=== PATIENT | male | born 1995 | race Caucasian/White ===

== ENCOUNTER 2023-07-07 15:45 | Emergency (ER) | payer OTHER, SELFPAY ==
[2023-07-07 15:49] VITALS: BP 139/78; PULSE 102; RESP 18; TEMP 37.5; O2SAT 98; BMI 27.5
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
[2023-07-07] MEDS: KETOROLAC 30 MG/ML inj IM (16:21)
== END 2023-07-07 18:04 | disposition home or self-care (01) ==
PROVIDERS: Emergency Provider Student in an Organized Health Care Education/Training Program
DX: S39.012A Strain of muscle, fascia and tendon of lower back, initial encounter (principal); V43.52XA Car driver injured in collision with other type car in traffic accident, initial encounter
CPT/HCPCS: 72040; 72070; 72100; 96372; 99282; 99284; 99285; J1885

== ENCOUNTER 2023-07-11 11:38 | Emergency (ER) | payer OTHER, SELFPAY ==
[2023-07-11 11:41] VITALS: BP 143/91; PULSE 62; RESP 24; TEMP 36; O2SAT 95; BMI 25.0
[2023-07-11] MEDS: ONDANSETRON 2 MG/ML inj 4 MG IVP (12:15)
[2023-07-11] MEDS: LACTATED RINGERS 1000 ML 1,000 ML IV (12:17)
[2023-07-11] MEDS: HALOPERIDOL 5 MG/ML INJ IV (12:30)
--- NOTE | 2023-07-11 12:40 | ED.NAVMDI ---
HPI - Nausea/Vomiting/Diarrhea General Date Seen: 07/11/23 Chief complaint: Nausea/Vomiting Stated complaint: Vomiting Time Seen by Provider: 07/11/23 11:49 Source: patient Mode of arrival: ambulatory Limitations: no limitations History of Present Illness HPI Narrative: Patient is a 28-year-old male presenting to emergency department for nausea and vomiting. Symptoms started this morning at 08:00. States he cannot stop vomiting. He has had symptoms like this before and was told he was never given a diagnosis. He does admit to drinking alcohol last night and had about 3 or 4 drinks. Says he smokes marijuana constantly throughout the day. States previously when this occurred he was given antiemetics and fluids and symptoms resolved. Denies fevers, chills, chest pain, shortness of breath, abdominal pain, diarrhea, constipation, lightheadedness, dizziness fevers. Related Data Home Medications Medication Instructions Recorded Confirmed [id number] 250 2 tab PO Q6H PRN 10/05/22 07/11/23 mg-250 mg-65 mg tablet (Excedrin Migraine) ibuprofen 200 mg tablet 400 mg PO Q6H PRN 10/05/22 07/11/23 Previous Rx's Medication Instructions Recorded ondansetron 4 mg disintegrating 4 mg PO Q6H #20 tabs 07/11/23 tablet Allergies Allergy/AdvReac Type Severity Reaction Status Date / Time codeine Allergy Anaphylaxis Verified 07/11/23 11:47 [facility] Medical History (Updated 07/11/23 @ 13:37 by Alexander Castro, DO) Neck pain ?M54.2 - Cervicalgia (ICD-10) Back pain ?M54.9 - Dorsalgia, unspecified (ICD-10) Depression ?F32.A - Depression, unspecified (ICD-10) Surgical History (Updated 10/05/22 @ 13:31 by Rosemary Bolanos ~ [facility], [facility]) History of tonsillectomy ?Z90.89 - Acquired absence of other organs (ICD-10) Family History (Updated 10/05/22 @ 13:36 by Rosemary Bolanos ~ [facility], [facility]) Grandmother Diabetes Grandfather Lymphoma Father Heart disease Social History (Updated 10/05/22 @ 13:32 by Rosemary Bolanos ~ [facility], [facility]) Smoking Status: Current every day smoker What tobacco products do you use: cigarettes Do you use any of these nicotine containing products: None Second hand tobacco smoke exposure: No How often do you have a drink containing alcohol: monthly or less AUDIT-C Alcohol total score: 1 Non-prescribed substance use: marijuana (any form) Non-prescribed substance use details: daily Little interest or pleasure in doing things: more than half the days Feeling down, depressed, or hopeless: several days service: No Exam Narrative: Exam Narrative: Const: Well-nourished, Well-developed, in moderate distress, actively retching Eyes: PERRL, no conjunctival injection, and symmetrical lids HENT: Atraumatic external nose and ears. Moist mucous membranes. Neck: Symmetric, trachea midline, No thyromegaly. CVS: RRR, No murmurs or gallops. Peripheral pulses 2+ and equal in all extremities RESP: Unlabored respiratory effort. Clear to auscultation bilaterally. GI: Nontender/Nondistended, No rebound or guarding. MSK:Extremities w/o deformity, Normal Active ROM Skin: Warm, Dry. No rashes or lesions. Neuro: Normal Muscle tone, No focal neurological deficits. Psych: Awake, Alert, & Oriented x3. Appropriate mood and affect. Const: Vital Signs, click to edit/add: Vital Signs - 24 hr 07/11/23 11:41 Temperature 96.8 F L Pulse Rate [Pulse Oximeter] 62 Respiratory Rate 24 Blood Pressure [Ri ght Upper Arm] 143/91 H Pulse Oximetry 95 Oxygen Delivery Me thod Room Air Course Vital Signs Vital signs: Initial Vital Signs Temperature 96.8 F L 07/11/23 11:41 Temperature Source Temporal Artery Scan 07/11/23 11:41 Pulse Rate 62 07/11/23 11:41 Respiratory Rate 24 07/11/23 11:41 Blood Pressure 143/91 H 07/11/23 11:41 Blood Pressure Mean 108 H 07/11/23 11:41 Blood Pressure Position Sitting 07/11/23 11:41 Pulse Oximetry 95 07/11/23 11:41 Oxygen Delivery Method Room Air 07/11/23 11:41 Vital Signs Temperature 96.8 F L 07/11/23 11:41 Pulse Rate 62 07/11/23 11:41 Respiratory Rate 24 07/11/23 11:41 Blood Pressure 143/91 H 07/11/23 11:41 Pulse Oximetry 95 07/11/23 11:41 Oxygen Delivery Method Room Air 07/11/23 11:41 Temperature 96.8 F L 07/11/23 11:41 Pulse Rate 62 07/11/23 11:41 Respiratory Rate 24 07/11/23 11:41 Blood Pressure 143/91 H 07/11/23 11:41 Pulse Oximetry 95 07/11/23 11:41 Oxygen Delivery Method Room Air 07/11/23 11:41 Medications Administered Medications: Discontinued Medications Generic Name Dose Route Start Last Admin Trade Name Freq PRN Reason Stop Dose Admin Haloperidol Lactate 5 mg 07/11/23 12:20 07/11/23 12:30 Haloperidol 5 Mg/Ml Inj IV 07/11/23 12:21 5 mg ONCE ONE Administration Lactated Ringer's 1,000 mls @ 1,000 mls/hr 07/11/23 12:04 07/11/23 12:17 Lactated Ringers 1000 Ml IV 07/11/23 13:03 1,000 mls/hr .Q1H ONE Administration Ondansetron HCl 4 mg 07/11/23 12:04 07/11/23 12:15 Ondansetron 2 Mg/Ml Inj IVP 07/11/23 12:05 4 mg ONCE ONE Administration MDM - Nausea/Vomiting/Diarrhea MDM Narrative Medical decision making narrative: Your patient's 28-year-old male presenting for nausea and vomiting. He is an active marijuana smoker and he is likely suffering from cannabinoid hyperemesis syndrome. IV was placed he was given L of fluid and Zofran. The Zofran did not help this is a given Haldol his symptoms improved significantly. This further makes me believe this is cannabinoid hyperemesis syndrome. I informed them of the diagnosis and to stop smoking marijuana. He states he understands. Do not believe imaging and lab work is necessary at this time Discharge Plan Discharge Clinical Impression: Cannabinoid hyperemesis syndrome Patient Disposition: Home, Self-Care Condition: Improved Instructions: Cannabis Use Disorder (ED) Additional Instructions: Your symptoms are likely secondary to your marijuana use. I recommend he stop smoking marijuana. Use the Zofran as needed for nausea. Return to emergency department for new or worsening symptoms Prescriptions: New ondansetron 4 mg tablet,disintegrating 4 mg PO Q6H Qty: 20 0RF No Action ibuprofen 200 mg tablet 400 mg PO Q6H PRN Excedrin Migraine 250-250-65 mg tablet 2 tab PO Q6H PRN Follow Up/Referrals: Provider,Not a Local [Primary Care Provider] - Stand Alone Forms: [employer] Info Instructions
--- NOTE | 2023-07-11 12:56 | ED.NURSE ---
Patient retching and nausea significantly reduced post haldol.
== END 2023-07-11 13:47 | disposition home or self-care (01) ==
PROVIDERS: Emergency Provider Student in an Organized Health Care Education/Training Program
DX: R11.2 Nausea with vomiting, unspecified (principal); F12.188 Cannabis abuse with other cannabis-induced disorder
CPT/HCPCS: 96374; 96375; 99282; 99283; J1630; J2405; J7120

== ENCOUNTER 2023-09-26 23:27 | Emergency (ER) | payer OTHER, SELFPAY ==
[2023-09-26 23:32] VITALS: BP 138/78; PULSE 87; RESP 20; TEMP 37; O2SAT 99; BMI 26.6
[2023-09-27] VITALS: O2SAT 98
--- NOTE | 2023-09-27 00:17 | ED_ITS ---
HPI - General Adult General Chief complaint: Allergic Reaction Stated complaint: allergic reaction, itching/hives Time Seen by Provider: 09/27/23 00:01 Source: patient Mode of arrival: ambulatory Limitations: no limitations History of Present Illness HPI narrative: 28 Year old male presents to the emergency department with hives that started about an hour ago. No fever, no trauma or injury. Similar episode 1 or 2 years ago Related Data Previous Rx's Medication Instructions Recorded prednisone 20 mg tablet 20 mg PO DAILY #3 tabs 09/27/23 Allergies Allergy/AdvReac Type Severity Reaction Status Date / Time codeine Allergy Anaphylaxis Verified 09/26/23 23:34 [facility] Medical History (Updated 09/27/23 @ 01:14 by Riddhi Foster MD) Neck pain ?M54.2 - Cervicalgia (ICD-10) Back pain ?M54.9 - Dorsalgia, unspecified (ICD-10) Depression ?F32.A - Depression, unspecified (ICD-10) Surgical History History of tonsillectomy ?Z90.89 - Acquired absence of other organs (ICD-10) Family History (Updated 10/05/22 @ 13:36 by Rosemary Bolanos ~ [facility], [facility]) Grandmother Diabetes Grandfather Lymphoma Father Heart disease Social History (Updated 10/05/22 @ 13:32 by Rosemary Bolanos ~ [facility], [facility]) Smoking Status: Current every day smoker What tobacco products do you use: cigarettes Do you use any of these nicotine containing products: None Second hand tobacco smoke exposure: No How often do you have a drink containing alcohol: monthly or less AUDIT-C Alcohol total score: 1 Non-prescribed substance use: marijuana (any form) Non-prescribed substance use details: daily Little interest or pleasure in doing things: more than half the days Feeling down, depressed, or hopeless: several days service: No Exam Const: Vital Signs, click to edit/add: Vital Signs - 24 hr 09/26/23 23:32 09/27/23 00:00 Temperature 98.6 F Pulse Rate [Right Pulse Oximeter] 87 Respiratory Rate 20 Blood Pressure [Ri ght Upper Arm] 138/78 Pulse Oximetry 99 98 Oxygen Delivery Me thod Room Air Documenting provider has reviewed patient's vital signs: yes Common normals: no apparent distress General appearance: cooperative and comfortable Other: No respiratory distress. HENMT: Common normals: normocephalic Head and scalp: normocephalic Mouth: oral and palatal mucosa normal Throat: posterior oropharynx normal and uvula midline Eye: Common normals: PERRL and EOMs intact bilaterally Pupil: PERRL Other: Sclera slightly injected on the right, normal on the left, no purulent drainage. No swelling to the conjunctiva. Neck & C-Spine: Common normals: full ROM and no lymphadenopathy General: normal visual inspection Resp: Common normals: normal respiratory effort, no use of accessory muscles and clear to auscultation bilaterally Effort & inspection: able to speak in complete sentences Auscultation: clear to auscultation bilaterally Cardio: Common normals: regular rate, regular rhythm, S1 normal heart sound, S2 normal heart sound and no murmurs Rate: regular rate Rhythm: regular rhythm Heart sounds: S1 normal and S2 normal GI: Common normals: Normal to inspection, nondistended, normoactive bowel sounds present, soft to palpation and no hepatosplenomegaly Palpation: soft and no hepatosplenomegaly Extremity: Common normals: normal to inspection and normal capillary refill Psych: Attitude: calm Activity/motor behavior: appropriate eye contact Insight: insight good Judgement: judgment good Skin: Narrative: Classic hives on arms, centering around antecubital fossa, a little bit on the upper chest and upper back, less than 10% total body surface area. No swelling on the face, lips, tongue. Course Course ED Course: Hives in patient with prior history of similar reaction. No signs of anaphylaxis. No signs of respiratory distress, circulatory collapse, GI symptoms. Uncertain trigger. Will give prednisone 40 mg p.o. x1, 10 of loratadine, 20 of famotidine and 50 of oral Benadryl. Will remain on continuous pulse ox monitor. Re-evaluate in an hour. Would likely benefit from a small steroid burst, oral antihistamines. Reevaluation(s) Time of Reevaluation #1: 01:18 Reevaluation #1: Patient monitored for about 90 minutes. Recheck showing that his hives are definitely improving though not completely resolved. No airway difficulty, no swelling of the lips, tongue, oropharynx. He is feeling quite a bit better. Will discharge home on 3 days of prednisone, 2 weeks of Claritin and p.r.n. Benadryl. Alarm symptoms reviewed and discussed, written instructions provided. Primary care follow-up if he continues to have episodes for thyroid, Lyme and other additional testing. He verbalizes understanding and agreement of plan Vital Signs Vital signs: Initial Vital Signs Respiratory Effort Normal, Spontaneous, Non-Labored 09/26/23 23:28 Respiratory Depth Normal 09/26/23 23:28 Vital Signs Temperature 98.6 F 09/26/23 23:32 Pulse Rate 87 09/26/23 23:32 Respiratory Rate 20 09/26/23 23:32 Blood Pressure 138/78 09/26/23 23:32 Pulse Oximetry 99 09/26/23 23:32 Oxygen Delivery Method Room Air 09/26/23 23:32 Temperature 98.6 F 09/26/23 23:32 Pulse Rate 87 09/26/23 23:32 Respiratory Rate 20 09/26/23 23:32 Blood Pressure 138/78 09/26/23 23:32 Pulse Oximetry 98 09/27/23 00:00 Oxygen Delivery Method Room Air 09/26/23 23:32 Medications Administered Medications: Generic Name Dose Route Start Last Admin Trade Name Freq PRN Reason Stop Dose Admin Diphenhydramine HCl 50 mg 09/27/23 00:15 09/27/23 00:33 Diphenhydramine 25 Mg Capsule PO 09/27/23 00:16 50 mg ONCE ONE Administration Famotidine 20 mg 09/27/23 00:15 09/27/23 00:33 Famotidine 20 Mg Tablet PO 09/27/23 00:16 20 mg ONCE ONE Administration Loratadine 10 mg 09/27/23 00:16 09/27/23 00:33 Loratadine 10 Mg Tablet PO 09/27/23 00:17 10 mg ONCE ONE Administration Prednisone 40 mg 09/27/23 00:15 09/27/23 00:33 Prednisone 10 Mg Tablet PO 09/27/23 00:16 40 mg ONCE ONE Administration Discharge Plan Discharge Clinical Impression: Urticaria Patient Disposition: Home, Self-Care Condition: Improved Instructions: Urticaria (ED) Additional Instructions: Hives can certainly be a frustrating experience. As we discussed, I am not sure what triggered them and most often, we are not able to find the cause. If you keep getting bouts of this, I would recommend a primary care follow-up to have thyroid testing, Lyme testing and other basic blood work that we are not able to do in an emergency department setting. The most important thing is to take Benadryl as soon as possible when these events happen. You should come to an emergency department if you have difficulty swallowing, difficulty breathing, swelling of the lips, tongue, throat or other severe symptoms. In the emergency department, we gave you prednisone, Claritin, famotidine and Benadryl. For the next few days follow the regimen as outlined below: Every day for the next 2 weeks, you will take a nondrowsy antihistamine like Claritin, Jolie or Zyrtec. This will work to help prevent the reaction. It is safe to take long-term if you continue getting these episodes. You will add on Benadryl 25 mg at bedtime for the next 3 nights but then also up to every 6 hours if the itch is bothersome. You will be on prednisone for the next 3 days. Your next dose will be early afternoon today which is . You will then take a dose Sunday morning and Sunday morning. This also helps reduce the hives reaction. For minor episodes in the future, use the 2 weeks of Claritin and nighttime Benadryl regimen as outlined above, seeking medical care if symptoms become severe. Remember that friction as in itch, heat and hot showers will worsen your reaction. Cold compresses may be temporarily helpful. Activity Level: No Restrictions Discharge Diet: Regular Prescriptions: New prednisone 20 mg tablet 20 mg PO DAILY Qty: 3 0RF Follow Up/Referrals: Provider,Not a Local [Primary Care Provider] - Stand Alone Forms: [employer] Info Instructions
[2023-09-27] MEDS: FAMOTIDINE 20 MG TABLET PO (00:33)
[2023-09-27] MEDS: predniSONE 10 MG TABLET 40 MG PO (00:33)
[2023-09-27] MEDS: LORATADINE 10 MG TABLET PO (00:33)
[2023-09-27] MEDS: diphenhydrAMINE 25 MG CAPSULE 50 MG PO (00:33)
[2023-09-27 01:33] VITALS: BP 128/74; PULSE 89; RESP 20; TEMP 37; O2SAT 98
== END 2023-09-27 01:34 | disposition home or self-care (01) ==
PROVIDERS: Emergency Provider Family Medicine
DX: L50.9 Urticaria, unspecified (principal)
CPT/HCPCS: 94761; 99283; 99284; A9270; J7512

== ENCOUNTER 2023-10-21 11:59 | Emergency (ER) | payer OTHER, SELFPAY ==
[2023-10-21 12:05] VITALS: BP 148/114; PULSE 86; RESP 22; TEMP 34.9; O2SAT 98; BMI 25.8
--- NOTE | 2023-10-21 12:13 | ED.GENADULT ---
HPI - General Adult General Date Seen: 10/21/23 Chief complaint: Nausea/Vomiting Stated complaint: vomiting uncontrollably Time Seen by Provider: 10/21/23 12:10 History of Present Illness HPI narrative: 28-year-old female presenting to the ER today with vomiting. He is experiencing repetitive uncontrolled emesis. He reports that he has had this many times in the past. Triage nurse notes that he smells of cannabis. Patient reports that he has been healthy and normal lately. He does smoke marijuana every day. He says he has not been smoking this morning. Since he woke up at about 830 this morning he has been nauseous and vomiting. He has had multiple episodes of nonbilious, nonbloody emesis and dry heaving. No abdominal pain. No fever. He had 1 loose/soft stool but no other diarrhea. No other known sick contacts. No recent antibiotics. Patient reports that he has had many previous episodes of this, he typically goes to whichever ER is closest for him. He recalls that he had been seen here in the [place] in the past. According to records he was in the ER 07/11/23 with vomiting. Temp was 98.6?. He was treated with Haldol, Zofran, lactated Ringer's. He was presumptively diagnosed with cannabis hyperemesis syndrome. Patient says that he has been told that his vomiting is related to marijuana intake. However he does not think it is related and does not want to stop. Related Data Previous Rx's ?Medication ?Instructions ?Recorded prednisone 20 mg tablet 20 mg PO DAILY #3 tabs 09/27/23 Allergies Allergy/AdvReac Type Severity Reaction Status Date / Time codeine Allergy Anaphylaxis Verified 09/26/23 23:34 [facility] Medical History (Updated 10/21/23 @ 15:02 by Dusty Randle MD) Neck pain ?M54.2 - Cervicalgia (ICD-10) Back pain ?M54.9 - Dorsalgia, unspecified (ICD-10) Depression ?F32.A - Depression, unspecified (ICD-10) Surgical History History of tonsillectomy ?Z90.89 - Acquired absence of other organs (ICD-10) Family History (Updated 10/05/22 @ 13:36 by Rosemary Bolanos ~ [facility]) Grandmother Diabetes Grandfather Lymphoma Father Heart disease Social History (Updated 10/05/22 @ 13:32 by Rosemary Bolanos ~ [facility], [facility]) Smoking Status: Current every day smoker What tobacco products do you use: cigarettes Do you use any of these nicotine containing products: None Second hand tobacco smoke exposure: No How often do you have a drink containing alcohol: monthly or less AUDIT-C Alcohol total score: 1 Non-prescribed substance use: marijuana (any form) Non-prescribed substance use details: daily Little interest or pleasure in doing things: more than half the days Feeling down, depressed, or hopeless: several days service: No Exam Narrative: Exam Narrative: Constitutional: Appears well-developed and well-nourished. Alert. Conversant. He is actively retching and has a small volume yellowish/greenish emesis in his emesis bag. HENT: Head: Atraumatic. Nose: Nose normal. Mouth/Throat: Oral mucosa is clear but dry. Not desiccated or cracked Eyes: Conjunctivae normal. EOM normal. Pupils equal, round, and reactive to light. No scleral icterus. Neck: Normal range of motion. Neck supple. No tracheal deviation present. Cardiovascular: Normal rate, regular rhythm. No gallop. No friction rub. No murmur heard. Symmetric radial artery pulses Pulmonary/Chest: Effort normal. No stridor. No respiratory distress. No wheezes. No rales. No rhonchi . No tenderness. Abdominal: Soft. Bowel sounds normal. No distension. No mass. No tenderness. No rebound. No guarding. No CVA tenderness. Musculoskeletal: RUE: Normal range of motion. No tenderness. No deformity LUE: Normal range of motion. No tenderness. No deformity RLE: Normal range of motion. No edema. No tenderness. No deformity LLE: Normal range of motion. No edema. No tenderness. No deformity Neurological: Alert and oriented to person, place, and time. Normal strength. CN II-VII intact. No sensory deficit. GCS eye subscore is 4. GCS verbal subscore is 5. GCS motor subscore is 6. Normal coordination Skin: Skin is warm and dry. No rash noted. No pallor. Normal capillary refill. Psychiatric: Nauseous and retching. He is overall polite and calm. Clinically sober. Const: Vital Signs, click to edit/add: Vital Signs - 24 hr 10/21/23 12:05 Temperature 94.9 F L Pulse Rate [Pulse Oximeter] 86 Respiratory Rate 22 Blood Pressure [Ri ght Upper Arm] 148/114 H Pulse Oximetry 98 Oxygen Delivery Me thod Room Air Course Course ED Course: k recheck-has received a L lactated Ringer's. After Zofran and droperidol feeling somewhat better. Able to tolerate sips of water but still nauseous. Will add Haldol Reevaluation(s) Reevaluation #1: Recheck-after Haldol feeling better. He is tolerating sips of water. He does not want to try any solids. He feels better and wants to go home. Offered to continue observe him here in the ER and try p.o. challenge with solids but he declines. He says typically in this case when he starts to feel better if he can go home and sleep then after he wakes up symptoms will have resolved. Vital Signs Vital signs: Initial Vital Signs Temperature 94.9 F L 10/21/23 12:05 Temperature Source Temporal Artery Scan 10/21/23 12:05 Pulse Rate 86 10/21/23 12:05 Pulse Rhythm Regular 10/21/23 12:05 Respiratory Rate 22 10/21/23 12:05 Blood Pressure 148/114 H 10/21/23 12:05 Blood Pressure Mean 125 H 10/21/23 12:05 Blood Pressure Position Supine 10/21/23 12:05 Pulse Oximetry 98 10/21/23 12:05 Oxygen Delivery Method Room Air 10/21/23 12:05 Vital Signs Temperature 94.9 F L 10/21/23 12:05 Pulse Rate 86 10/21/23 12:05 Respiratory Rate 22 10/21/23 12:05 Blood Pressure 148/114 H 10/21/23 12:05 Pulse Oximetry 98 10/21/23 12:05 Oxygen Delivery Method Room Air 10/21/23 12:05 Temperature 94.9 F L 10/21/23 12:05 Pulse Rate 86 10/21/23 12:05 Respiratory Rate 22 10/21/23 12:05 Blood Pressure 148/114 H 10/21/23 12:05 Pulse Oximetry 98 10/21/23 12:05 Oxygen Delivery Method Room Air 10/21/23 12:05 Medications Administered Medications: Discontinued Medications Generic Name Dose Route Start Last Admin Trade Name Lotus PRN Reason Stop Dose Admin Droperidol 2.5 mg 10/21/23 12:15 10/21/23 12:47 Droperidol 2.5 Mg/Ml Inj IV 10/21/23 12:16 2.5 mg ONCE ONE Administration Haloperidol Lactate 2.5 mg 10/21/23 13:58 10/21/23 14:05 Haloperidol 5 Mg/Ml Inj IV 10/21/23 13:59 2.5 mg ONCE ONE Administration Lactated Ringer's 1,000 ml 10/21/23 12:15 10/21/23 12:42 Lactated Ringers 1000 Ml IV 10/21/23 12:16 1,000 ml ONCE ONE Administration Ondansetron HCl 4 mg 10/21/23 12:15 10/21/23 12:46 Ondansetron 2 Mg/Ml Inj IVP 10/21/23 12:16 4 mg ONCE ONE Administration Medical Decision Making MDM Narrative Medical decision making narrative: This is a 28-year-old male presenting to the ER today with nausea and repetitive dry heaving and vomiting that began this morning. He reports a history of multiple previous episodes, including previous visits to this ER. He has in the past been diagnosed with cannabis hyperemesis syndrome. He does report ongoing cannabis use (but did not smoke any marijuana today, because he woke up sick). He does not think that cannabis hyperemesis syndrome is causing his symptoms. He is not interested in quitting. I did student support counselor him to at least do a trial a cessation for couple of months. Although he is actively vomiting, no evidence for upper GI bleeding. He had 1 soft stool but no other diarrhea. At this point viral gastroenteritis or other GI infection would be less likely. Abdominal exam is actually soft and nontender. No clinical evidence for bowel obstruction, cholecystitis, appendicitis. At this point I do not think he needs laboratory workup or advanced imaging. He was treated with IV lactated Ringer's. EKG confirms a normal QTC. He received Zofran and droperidol with only partial relief of his nausea. After Haldol 2.5 mg IV he is feeling better and requesting discharge. Will discharge home with [facility] prescription for Zofran 4 mg ODT-10 tablets. Precautions for return to the ER reviewed. Recommend outpatient follow-up with primary care. He does not currently have primary care. Recommended follow-up with the [facility] within 1 week. Return to the ER immediately with any worsening or recurring symptoms. ECG Data Attestation: I personally reviewed and interpreted this ECG as follows: Interpretation: Sinus bradycardia with sinus arrhythmia Rate: 54 MD: 144 QRS axis: Normal axis. No pathologic Q-waves. ST segment/T wave: No ST segment elevation or depression. No U-waves. QTc: 417 Discharge Plan Discharge Clinical Impression: Vomiting Patient Disposition: Home, Self-Care Condition: Stable Instructions: Acute Nausea and Vomiting (ED) Additional Instructions: As we discussed, please come back to the ER right away if you have uncontrolled vomiting, fever, bloody vomiting, or abdominal pain. Please call the [facility] [phone] on Sunday to make an appointment with a primary care provider to recheck for these periodic episodes of vomiting. However, I suspect that your vomiting could be triggered by cannabis use. I recommend that you abstain from cannabis. It often takes a month or 2 for the THC to get out of your system which may stop these events from coming back. Prescriptions: No Action prednisone 20 mg tablet 20 mg PO DAILY Qty: 3 0RF Follow Up/Referrals: Provider,Not a Local [Primary Care Provider] - Stand Alone Forms: [employer] Info Instructions
[2023-10-21] MEDS: LACTATED RINGERS 1000 ML IV (12:42)
[2023-10-21] MEDS: ONDANSETRON 2 MG/ML inj 4 MG IVP (12:46)
[2023-10-21] MEDS: droperidoL 2.5 MG/ML inj IV (12:47)
[2023-10-21] MEDS: HALOPERIDOL 5 MG/ML INJ 2.5 MG IV (14:05)
== END 2023-10-21 15:11 | disposition home or self-care (01) ==
PROVIDERS: Emergency Provider Emergency Medicine
DX: R11.10 Vomiting, unspecified (principal)
CPT/HCPCS: 93005; 96374; 96375; 99283; 99284; J1630; J1790; J2405; J7120

== ENCOUNTER 2025-01-06 19:54 | Emergency (ER) | payer OTHER, SELFPAY ==
--- OUTSIDE RECORDS SUMMARY | 2025-01-06 19:56 | XMS_ITS | Clinical Summary ---
Author Organization [facility] Address [address] [place] [address] Care Team Providers Care Manager Corporate Responsibility Name Role Phone No Ref-Primary, Physician Primary Care Provider Allergies Active Allergy Reactions Criticality Noted Date Comments Morphine And Codeine Nausea and Vomiting 2009 Medications ondansetron (ZOFRAN-ODT) 4 MG ODT tabIndications: Intractable cyclical vomiting with nausea Take 1 tablet (4 mg) by mouth every 6 hours as needed for nausea 30 tablet 3 7 Active promethazine (PHENERGAN) 25 MG tabletIndicatio ns:Intractable cyclical vomiting with nausea Take 1 tablet (25 mg) by mouth every 6 hours as needed for nausea 20 tablet 1 7 Active EPINEPHrine (ANY BX GENERIC EQUIV) 0.3 MG/0.3ML injection 2-pack Inject 0.3 mLs (0.3 mg) into the muscle once as needed for anaphylaxis 0.6 mL 2 Active prochlorperazin e (COMPAZINE) 10 MG tablet Take 1 tablet (10 mg) by mouth every 8 hours as needed for nausea or vomiting 20 tablet 4 Active Active Problems Problem Noted Date Diagnosed Date Cyclical vomiting, intractable 09/10/2016 Mild major depression 07/23/2008 Attention deficit hyperactivity disorder (ADHD) 04/03/2008 Overview (02/26/2015): Problem list name updated by automated process. Provider to review Immunizations Immunization Administration Dates Next Due DTAP (<7y) 02/11/1996, 5,1994,09/27,1994 HEPA 07/23/2008,01/17/2007,01/16/2006 HIB (PRP-T) 10/29/1995, 5,1994,09/27 HepB 05/03/1995,1994,1994 MMR (MMRII) 10/29/1995,1994 Meningococcal (Menomune ) 01/16/2006 Meningococcal ACWY (Menactra ) 01/17/2007 Poliovirus, inactivated (IPV) 05/03/1995, 995,1994 TDAP Vaccine (Adacel) 01/16/2006 TDAP Vaccine (Boostrix) 01/17/2007 Varicella Pt Report Hx of Varicella/Chicken Pox 02/25/1995 Family History Medical History Relation Comments Diabetes Maternal Grandmother Relation Status Comments Brother Alive Father Alive Maternal Grandfather Alive Maternal Grandmother Alive Mother Alive Paternal Grandfather Alive Paternal Grandmother Alive Social History Tobacco Use Types Packs/Day Years Used Date Smoking Tobacco: Never Alcohol Use Standard Drinks/Week Comments No 0 (1 standard drink = 0.6 oz pur e alcohol) Adolescent Education Answer Date Record ed Getting School Help Needed Not on file 03/13 Sex and Gender Information Value Date Recorded Sex Assigned at Not on file Legal Sex Male 4:45 AM [employer] Gender Identity Not on file Sexual Orientation Not on file Last Filed Vital Signs Vital Sign Reading Time Taken Comments Blood Pressure 144/109 10/23/2023 1:30 PM CDT Pulse 62 10/23/2023 1:30 PM CDT Temperature 36.1 C (97 F) 10/23/2023 9:18 AM CDT Respiratory Rate 20 10/23/2023 1:30 PM CDT Oxygen Saturation 99% 10/23/2023 1:41 PM CDT Inhaled Oxygen Concentration - - Weight 76.5 kg (168 lb 10.4 oz) 10/23/2023 9:18 AM CDT Height 165.1 cm (5' 5) 10/23/2023 9:18 AM CDT Body Mass Index 28.07 10/23/2023 9:18 AM CDT Plan of Treatment Health Maintenance Due Date Last Done Comments ADVANCE CARE PLANNING 1994 ANNUAL REVIEW OF HM ORDERS 1994 DEPRESSION ACTION PLAN 1994 PHQ-9 1994 YEARLY PREVENTIVE VISIT 01/18/2008 01/17/2007 HIV SCREENING 2009 HEPATITIS C SCREENING 2012 COVID-19 VACCINE ( season) 2024 INFLUENZA VACCINE (#1) 2025 DTAP/TDAP/TD VACCINE (8 - Td or Tdap) 08/05/2031 08/04/2021, 01/17/2007, 01/16/2006, Additional history exists ZOSTER VACCINE (1 of 2) 2044 HEPATITIS B VACCINE Completed 05/03/1995, 1994, 1994 MENINGITIS VACCINE Aged Out 01/17/2007, 01/16/2006 No longer eligible based on patient's age to complete this topic HPV VACCINE (No Doses Required) Completed PNEUMOCOCCAL VACCINE: PEDIATRICS (0 to 5 YEARS) AND AT-RISK PATIENTS (6 to 49 YEARS) Aged Out No longer eligible based on patient's age to complete this topic Care Teams Manager Corporate Responsibility Relationship Specialty Start Date End Date No Ref-Primary, Physician PCP - General 11/20/21
--- OUTSIDE RECORDS SUMMARY | 2025-01-06 19:56 | XMS_ITS | Clinical Summary ---
Author Organization [facility] Address [address] [place] [address] Care Team Providers Care Customer Business Manager Name Role Phone Pcp, No Primary Care Provider Unavailabl e Allergies Active Allergy Reactions Criticality Noted Date Comments Codeine Nausea And Vomiting,Vomiting Unknown 015 Medications metoclopramide HCl (REGLAN) 10 mg tabletIndication s:Cyclical vomiting Take 1 Tablet (10 mg) by mouth 4 times daily before meals and at bedtime. 30 Tablet 01/05/2021 Active Active Problems Problem Noted Date Diagnosed Date Cyclical vomiting, intractable 09/10/2016 Attention deficit disorder without mention of hy peractivity 01/06/2009 Depressive disorder, not elsewhere classified Immunizations Immunization Administration Dates Next Due Tdap 08/04/2021 Family History Medical History Relation Name Comments Migraines Mother Relation Name Status Comments Mother Alive Social History Tobacco Use Types Packs/Day Years Used Date Smoking Tobacco: Every Day Cigarettes Smokeless Tobacco: Never Tobacco Cessation:Ready to Q uit: Yes; Counseling Given: Yes Alcohol Use Standard Drinks/Week Comments Yes 2 (1 standard drink = 0.6 oz pur e alcohol) Sex and Gender Information Value Date Recorded Sex Assigned at Not on file 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 Gender Identity Not on file Sexual Orientation Not on file Obstetrics History Last Filed Vital Signs Vital Sign Reading Time Taken Comments Blood Pressure 131/65 08/04/2021 8:15 PM HAM PUMPER Pulse 84 08/04/2021 8:15 PM HAM PUMPER Temperature 37.1 C (98.7 F) 08/04/2021 6:40 PM HAM PUMPER Respiratory Rate 16 08/04/2021 8:15 PM HAM PUMPER Oxygen Saturation 97% 08/04/2021 6:40 PM HAM PUMPER Inhaled Oxygen Concentration - - Weight 80.7 kg (178 lb) 08/04/2021 6:40 PM HAM PUMPER Height 165.1 cm (5' 5) 08/04/2021 6:40 PM HAM PUMPER Body Mass Index 29.62 08/04/2021 6:40 PM HAM PUMPER Plan of Treatment Health Maintenance Due Date Last Done Comments Depression screening for age 12+ 2006 HIV for age 15-65 2009 Hepatitis C screening for ag e 18-79 2012 Hepatitis B series for 19+ ( 1 of 3 - 19+ 3-dose series) 2013 BMI (ht and wt on same day) for age 18+ 04/23/2018 04/23/2017, 09/11/2016 COVID-19 vaccine series (2023- season) 2024 Influenza Vaccine (#1) 2025 Tetanus booster 08/05/2031 08/04/2021 Pneumococcal series for age 6-49 Aged Out No longer eligible b ased on patient's age to complete this topic Insurance [facility] Care Teams Customer Business Manager Relationship Specialty Start Date End Date Pcp, No . PCP - General 04/07/19
--- OUTSIDE RECORDS SUMMARY | 2025-01-06 19:56 | XMS_ITS | Encounter Summary ---
Author Organization [facility] Address [address] [place] [address] Care Team Providers Care Line Construction Engineer Name Role Phone Bernadette Carter MD Primary Care Provider None Primary Care Provider Unavailabl e No Ref-Primary, Physician Primary Care Provider Encounter Details Date Type Department Care Team (Late st Contact Info) Description 10/01/2008 [facility] ALBINO Cisneros, Provider, [facility] Social History Tobacco Use Types Packs/Day Years Used Date Smoking Tobacco: Never Alcohol Use Standard Drinks/Week Comments No 0 (1 standard drink = 0.6 oz pur e alcohol) Sex and Gender Information Value Date Recorded Sex Assigned at Not on file 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
[2025-01-06 19:58] VITALS: BP 150/98; PULSE 73; RESP 18; TEMP 36.7; O2SAT 98; BMI 25.7
--- NOTE | 2025-01-06 20:15 | ED_ITS ---
HPI - Nausea/Vomiting/Diarrhea General Date Seen: 01/06/25 Chief complaint: Nausea/Vomiting Stated complaint: throwing up all day Time Seen by Provider: 01/06/25 19:56 Source: patient Mode of arrival: ambulatory Limitations: no limitations History of Present Illness HPI Narrative: Patient is a 29-year-old male with a history of cyclic vomiting syndrome presenting to the emergency department for nausea and vomiting. States he has been vomiting since 09:00. He is now dry heaving as not being able the eat or drink anything all day. Does have some abdominal discomfort he states that is soreness from the vomiting. Had no pain prior to the vomiting. States symptoms like this have been going on for 6 years and has been seen in this emergency department multiple times for cyclic vomiting. The patient is adamant that this is not marijuana related and he states he has tried abstaining from marijuana for multiple months in the past without improvement in his symptoms. Denies fevers, chills, chest pain, shortness of breath, weakness, numbness, lightheadedness, dizziness. No other concerns noted at this time. Related Data Allergies Allergy/AdvReac Type Severity Reaction Status Date / Time codeine Allergy Anaphylaxis Verified 01/06/25 20:01 Review of Systems Status of ROS: Reports: 10 or more systems reviewed and unremarkable except as noted in History and below [facility] Medical History (Updated 01/06/25 @ 21:37 by Alexander Castro DO) Cyclical vomiting, intractable ?R11.15 - Cyclical vomiting syndrome unrelated to migraine (ICD-10) Neck pain ?M54.2 - Cervicalgia (ICD-10) Back pain ?M54.9 - Dorsalgia, unspecified (ICD-10) Depression ?F32.A - Depression, unspecified (ICD-10) Surgical History History of tonsillectomy ?Z90.89 - Acquired absence of other organs (ICD-10) Family History Grandmother Diabetes Grandfather Lymphoma Father Heart disease Social History Smoking Status: Current every day smoker What tobacco products do you use: cigarettes Do you use any of these nicotine containing products: None Second hand tobacco smoke exposure: No How often do you have a drink containing alcohol: monthly or less AUDIT-C Alcohol total score: 1 Non-prescribed substance use: marijuana (any form) Non-prescribed substance use details: daily service: No Exam Narrative: Exam Narrative: Const: Well-nourished, Well-developed, actively dry heaving Eyes: PERRL, no conjunctival injection, and symmetrical lids HENT: Atraumatic external nose and ears. Moist mucous membranes. Neck: Symmetric, trachea midline, No thyromegaly. CVS: RRR, No murmurs or gallops. Peripheral pulses 2+ and equal in all ex tremities RESP: Unlabored respiratory effort. Clear to auscultation bilaterally. GI: Nontender/Nondistended, No rebound or guarding. MSK:Extremities w/o deformity, Normal Active ROM Skin: Warm, Dry. No rashes or lesions. Neuro: Normal Muscle tone, No focal neurological deficits. Psych: Awake, Alert, & Oriented x3. Appropriate mood and affect. Const: Vital Signs, click to edit/add: Vital Signs - 24 hr 01/06/25 19:58 01/06/25 20:23 Temperature 98.1 F Pulse Rate 61 Pulse Rate [Pulse Oximeter] 73 Respiratory Rate 18 23 Blood Pressure 157/87 H Blood Pressure [Ri ght Upper Arm] 150/98 H Pulse Oximetry 98 98 Oxygen Delivery Me thod Room Air Course Vital Signs Vital signs: Initial Vital Signs Temperature 98.1 F 01/06/25 19:58 Temperature Source Temporal Artery Scan 01/06/25 19:58 Pulse Rate 73 01/06/25 19:58 Respiratory Rate 18 01/06/25 19:58 Blood Pressure 150/98 H 01/06/25 19:58 Blood Pressure Mean 115 H 01/06/25 19:58 Blood Pressure Position Sitting 01/06/25 19:58 Pulse Oximetry 98 01/06/25 19:58 Oxygen Delivery Method Room Air 01/06/25 19:58 Vital Signs Temperature 98.1 F 01/06/25 19:58 Pulse Rate 73 01/06/25 19:58 Respiratory Rate 18 01/06/25 19:58 Blood Pressure 150/98 H 01/06/25 19:58 Pulse Oximetry 98 01/06/25 19:58 Oxygen Delivery Method Room Air 01/06/25 19:58 Temperature 98.1 F 01/06/25 19:58 Pulse Rate 61 01/06/25 20:23 Respiratory Rate 23 01/06/25 20:23 Blood Pressure 157/87 H 01/06/25 20:23 Pulse Oximetry 98 01/06/25 20:23 Oxygen Delivery Method Room Air 01/06/25 19:58 Medications Administered Medications: Generic Name Dose Route Start Last Admin Trade Name Freq PRN Reason Stop Dose Admin Ondansetron HCl 4 mg 01/06/25 21:09 01/06/25 21:12 Ondansetron 2 Mg/Ml Inj IVP 4 mg Q4H PRN Administration Nausea Discontinued Medications Generic Name Dose Route Start Last Admin Trade Name Freq PRN Reason Stop Dose Admin Haloperidol Lactate 5 mg 01/06/25 20:08 01/06/25 20:12 Haloperidol 5 Mg/Ml Inj IV 01/06/25 20:09 5 mg ONCE ONE Administration Sodium Chloride 1,000 mls @ 1,000 mls/hr 01/06/25 20:15 01/06/25 21:06 0.9 % Sodium Chloride 1000 Ml IV 01/06/25 21:14 Infused .Q1H NOEMÍ Infusion MDM - Nausea/Vomiting/Diarrhea MDM Narrative Medical decision making narrative: Patient is a 29-year-old male presenting for cyclic vomiting. This is likely cannabinoid induced but patient is in denial about that. Considering this has been ongoing for multiple years and symptoms are similar to previous episodes I do not believe it is necessary to get lab work. Nursing staff did give him a L of fluids. Also given Haldol for his nausea. After the Haldol he was feeling better but still slightly nauseated. Zofran was given. EKG was done and shows no signs of QTC prolongation. He is feeling better after the Zofran. Feels comfortable with discharge. States he has Zofran at home and does not need another prescription. ECG Data Prior ECG tracings: available for review Interpretation: Sinus bradycardia with a rate 59 beats per minute, normal intervals, normal axis, no ST or T-wave abnormalities. Appears similar previous EKG on file Discharge Plan Discharge Clinical Impression: Cyclical vomiting Patient Disposition: Home, Self-Care Condition: Stable Additional Instructions: Follow-up with your primary care provider. Return to emergency department for new or worsening symptoms Follow Up/Referrals: Provider,Not a Local [Primary Care Provider, Family Practice] Stand Alone Forms: MyHealth Info Instructions
[2025-01-06 20:23] VITALS: BP 157/87; PULSE 61; RESP 23; O2SAT 98
[2025-01-06 20:45] VITALS: PULSE 70; RESP 27; O2SAT 99
[2025-01-06] MEDS: ONDANSETRON 2 MG/ML inj 4 MG IVP (21:12)
[2025-01-06 21:15] VITALS: PULSE 62; RESP 14; O2SAT 97
== END 2025-01-06 21:53 | disposition home or self-care (01) ==
PROVIDERS: Emergency Provider Student in an Organized Health Care Education/Training Program
DX: R11.15 Cyclical vomiting syndrome unrelated to migraine (principal); R00.1 Bradycardia, unspecified
CPT/HCPCS: 93005; 94761; 96374; 96375; 99283; 99284; J1630; J2405; J7030

== ENCOUNTER 2025-02-20 09:05 | Emergency (ER) | payer OTHER, SELFPAY ==
--- OUTSIDE RECORDS SUMMARY | 2025-02-20 09:07 | XMS_ITS | Encounter Summary ---
Author Organization [facility] Address [address] [facility] [place] [address] Care Team Providers Care Gourmet Coffee Attendant Name Role Phone Bernadette Carter MD Primary Care Provider None Primary Care Provider Unavailabl e No Ref-Primary, Physician Primary Care Provider Encounter Details Date Type Department Care Team (Late st Contact Info) Description 10/01/2008 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
--- OUTSIDE RECORDS SUMMARY | 2025-02-20 09:07 | XMS_ITS | Clinical Summary ---
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 Gender Identity Not on file Sexual Orientation Not on file Obstetrics History Last Filed Vital Signs Vital Sign Reading Time Taken Comments Blood Pressure 131/65 08/04/2021 8:15 PM SUPERVISOR HOME ECONOMICS Pulse 84 08/04/2021 8:15 PM SUPERVISOR HOME ECONOMICS Temperature 37.1 C (98.7 F) 08/04/2021 6:40 PM SUPERVISOR HOME ECONOMICS Respiratory Rate 16 08/04/2021 8:15 PM SUPERVISOR HOME ECONOMICS Oxygen Saturation 97% 08/04/2021 6:40 PM SUPERVISOR HOME ECONOMICS Inhaled Oxygen Concentration - - Weight 80.7 kg (178 lb) 08/04/2021 6:40 PM SUPERVISOR HOME ECONOMICS Height 165.1 cm (5' 5) 08/04/2021 6:40 PM SUPERVISOR HOME ECONOMICS Body Mass Index 29.62 08/04/2021 6:40 PM SUPERVISOR HOME ECONOMICS Plan of Treatment Health Maintenance Due Date Last Done Comments Depression screening for age 12+ 2006 HIV for age 15-65 2009 Hepatitis C screening for ag e 18-79 2012 Hepatitis B series for 19+ ( 1 of 3 - 19+ 3-dose series) 2013 BMI (ht and wt on same day) for age 18+ 04/23/2018 04/23/2017, 09/11/2016 HPV series for age 9-45 (1 - 3-dose SCDM series) 2021 COVID-19 vaccine series ( season) 2025 Influenza Vaccine (#1) 2025 Tetanus booster 08/05/2031 08/04/2021 RSV vaccine for adults or (1 - 1-dose 75+ series) 2069 Pneumococcal series for age 6-49 Aged Out No longer eligible b ased on patient's age to complete this topic Insurance [facility] Care Teams Pencils Washer Relationship Specialty Start Date End Date Pcp, No . PCP - General 04/07/19
--- OUTSIDE RECORDS SUMMARY | 2025-02-20 09:08 | XMS_ITS | Clinical Summary ---
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
[2025-02-20 09:10] VITALS: BP 152/111; PULSE 57; RESP 22; O2SAT 100; BMI 28.9
--- NOTE | 2025-02-20 09:24 | ED.GENADULT ---
HPI - General Adult General Chief complaint: Nausea/Vomiting Stated complaint: vomiting Time Seen by Provider: 02/20/25 09:06 History of Present Illness HPI narrative: Patient is a 29-year-old gentleman with history of cyclic vomiting syndrome who comes in today with nausea and vomiting starting this morning. He has had no fevers no chills no stiff neck no headaches no changes vision no chest pain no shortness of breath no diarrhea. The vomiting has been bilious and nonbloody. He has had similar episodes in the past. No other localizing symptoms. Related Data Home Medications ?Medication ?Instructions ?Recorded ?Confirmed omeprazole magnesium PO 02/20/25 Allergies Allergy/AdvReac Type Severity Reaction Status Date / Time codeine Allergy Anaphylaxis Verified 02/20/25 09:15 Review of Systems Status of ROS: Reports: 10 or more systems reviewed and unremarkable except as noted in History and below [facility] Medical History Cyclical vomiting, intractable ?R11.15 - Cyclical vomiting syndrome unrelated to migraine (ICD-10) Neck pain ?M54.2 - Cervicalgia (ICD-10) Back pain ?M54.9 - Dorsalgia, unspecified (ICD-10) Depression ?F32.A - Depression, unspecified (ICD-10) Surgical History History of tonsillectomy ?Z90.89 - Acquired absence of other organs (ICD-10) Family History Grandmother Diabetes Grandfather Lymphoma Father Heart disease Social History Smoking Status: Current every day smoker What tobacco products do you use: cigarettes Do you use any of these nicotine containing products: None Second hand tobacco smoke exposure: No How often do you have a drink containing alcohol: monthly or less AUDIT-C Alcohol total score: 1 Non-prescribed substance use: marijuana (any form) Non-prescribed substance use details: daily service: No Exam Narrative: Exam Narrative: EXAM GENERAL: Patient appears agitated and nauseous. EYES: No scleral icterus. LYMPH: No supraclavicular or cervical lymphadenopathy. SKIN: Visible skin seen during exam normal or with benign process only. EXT: No dependent lower extremity pedal edema. HEART: Regular rate and rhythm with no murmurs, rubs, or gallops. LUNGS: Clear to auscultation bilaterally with no crackles or wheezes. ABD: Soft, non tender, non distended. PSYCH: Good eye contact, speech is not pressured. Const: Vital Signs, click to edit/add: Vital Signs - 24 hr 02/20/25 09:10 Pulse Rate [Right Pulse Oximeter] 57 L Respiratory Rate 22 Blood Pressure [Le ft Upper Arm] 152/111 H Pulse Oximetry 100 Oxygen Delivery Me thod Room Air Course Course ED Course: CBC lipase comprehensive metabolic panel pending. Normal saline and Zofran given. Vital Signs Vital signs: Initial Vital Signs Temperature Source Temporal Artery Scan 02/20/25 09:10 Pulse Rate 57 L 02/20/25 09:10 Pulse Rhythm Regular 02/20/25 09:10 Respiratory Rate 22 02/20/25 09:10 Blood Pressure 152/111 H 02/20/25 09:10 Blood Pressure Mean 124 H 02/20/25 09:10 Blood Pressure Position Sitting 02/20/25 09:10 Pulse Oximetry 100 02/20/25 09:10 Oxygen Delivery Method Room Air 02/20/25 09:10 Vital Signs Pulse Rate 57 L 02/20/25 09:10 Respiratory Rate 22 02/20/25 09:10 Blood Pressure 152/111 H 02/20/25 09:10 Pulse Oximetry 100 02/20/25 09:10 Oxygen Delivery Method Room Air 02/20/25 09:10 Pulse Rate 57 L 02/20/25 09:10 Respiratory Rate 22 02/20/25 09:10 Blood Pressure 152/111 H 02/20/25 09:10 Pulse Oximetry 100 02/20/25 09:10 Oxygen Delivery Method Room Air 02/20/25 09:10 Medications Administered Medications: Generic Name Dose Route Start Last Admin Trade Name Freq PRN Reason Stop Dose Admin Sodium Chloride 1,000 mls @ 1,000 mls/hr 02/20/25 10:45 02/20/25 10:51 0.9 % Sodium Chloride 1000 Ml IV 02/20/25 11:44 1,000 mls/hr .Q1H NOEMÍ Administration Discontinued Medications Generic Name Dose Route Start Last Admin Trade Name Freq PRN Reason Stop Dose Admin Droperidol 0.625 mg 02/20/25 09:52 02/20/25 10:13 Droperidol 2.5 Mg/Ml Inj IV 02/20/25 09:53 0.625 mg ONCE ONE Administration Sodium Chloride 1,000 mls @ 1,000 mls/hr 02/20/25 09:26 02/20/25 10:13 0.9 % Sodium Chloride 1000 Ml IV 02/20/25 10:25 Infused .Q1H NOEMÍ Infusion Ondansetron HCl 4 mg 02/20/25 09:25 02/20/25 09:37 Ondansetron 2 Mg/Ml Inj IVP 02/20/25 09:26 4 mg ONCE ONE Administration Medical Decision Making MDM Narrative Medical decision making narrative: Patient is a 29-year-old gentleman with cyclic vomiting syndrome who states he has been cutting back on his marijuana use. Whenever the case, patient presents with refractory nausea and vomiting. His laboratory studies including lipase and electrolytes are normal. He does have leukocytosis. I did give him 2 L of normal saline 4 mg of Zofran and 0.65 mg of droperidol with resolution of his symptoms. Patient is feeling much better. He will avoid cannabis in the future and he does have Zofran at home. He is discharged home at this time. Lab Data Labs: Lab Results 02/20/25 Range/Units 09:30 WBC 15.67 H (4.50-11.00) K/uL RBC 5.21 (4.30-5.90) m/uL Hgb 16.9 (13.5-17.5) gm/dL Hct 48.2 (37.0-53.0) % MCV 93 (80-100) fL MCH 32 (26-34) pg MCHC 35 (32-36) gm/dL RDW Coeff of Lyric 12.5 (11.5-15.5) % Plt Count 188 (140-440) K/uL Neut % (Auto) 78.4 H (42.0-72.0) % Lymph % (Auto) 12.6 L (20-44) % [place] % (Auto) 6.8 (0.0-11.0) % Eos % (Auto) 1.7 (0.0-7.0) % Baso % (Auto) 0.2 (0.0-3.0) % Neut # (Auto) 12.30 H (1.7-7.0) K/uL Lymph # (Auto) 2.00 (0.90-2.90) K/uL [place] # (Auto) 1.10 H (0.00-0.90) K/UL Eos # (Auto) 0.30 (0.00-0.50) K/uL Baso # (Auto) 0.00 (0.00-0.30) K/uL Abs Immat Gran (auto) 0.00 (0.00-0.30) K/uL Imm/Tot Granulo (auto) 0.3 % Sodium 137 (135-149) mmol/L Potassium 3.9 (3.6-5.1) mmol/L Chloride 109 (96-114) mmol/L Carbon Dioxide 20 (20-32) mmol/L Anion Gap 8 (7-15) mEq/L BUN 12 (5-24) mg/dL Creatinine 0.6 (0.5-1.5) mg/dL Estimated Creat Clear 156.60 Estimated GFR 133 ml/min Glucose 126 H (60-115) mg/dL Calcium 9.1 (8.4-10.6) mg/dL Total Bilirubin 0.6 (0.1-1.5) mg/dL AST 29 (12-35) U/L ALT 23 (4-50) U/L Alkaline Phosphatase 103 (40-150) U/L Total Protein 7.1 (6.0-8.3) g/dL Albumin 4.4 (3.3-5.0) g/dL Lipase 68 (23-300) U/L Discharge Plan Discharge Clinical Impression: Vomiting Patient Disposition: Home, Self-Care Condition: Stable Instructions: Acute Nausea and Vomiting (ED) Additional Instructions: Continue previously prescribed Zofran at home. Advanced diet activity Follow-up with your doctor as needed. Activity Level: No Restrictions Discharge Diet: Regular Prescriptions: No Action omeprazole magnesium [Prilosec OTC] PO Follow Up/Referrals: Provider,Not a Local [Primary Care Provider, Family Practice] Stand Alone Forms: MyHealth Info Instructions
[2025-02-20 09:36] LABS: Hematocrit* 48.2 % (37.0-53.0); Hemoglobin* 16.9 gm/dL (13.5-17.5); Immature Granulocytes Pct Auto 0.3 %; Mean Corpuscular HGB Conc 35 gm/dL (32-36); Mean Corpuscular Hemoglobin 32 pg (26-34); Mean Corpuscular Volume 93 fL (80-100); RDW Coefficient of Variation % 12.5 % (11.5-15.5); Red Blood Count* 5.21 m/uL (4.30-5.90); White Blood Count* 15.67 K/uL (4.50-11.00)
[2025-02-20] MEDS: ONDANSETRON 2 MG/ML inj 4 MG IVP (09:37)
[2025-02-20 09:39] LABS: Immature Granulocytes Abs Auto 0.00 K/uL (0.00-0.30); Lymphocytes Absolute Auto 2.00 K/uL (0.90-2.90)
[2025-02-20 09:40] LABS: Slide Review Reflex No
[2025-02-20 10:19] LABS: Albumin* 4.4 g/dL (3.3-5.0); Chloride* 109 mmol/L (96-114); Potassium* 3.9 mmol/L (3.6-5.1); Sodium* 137 mmol/L (135-149)
[2025-02-20 10:21] LABS: Alanine Aminotransferase* 23 U/L (4-50); Anion Gap 8 mEq/L (7-15); Aspartate Amino Transferase* 29 U/L (12-35); Blood Urea Nitrogen* 12 mg/dL (5-24); Carbon Dioxide* 20 mmol/L (20-32); Creatinine* 0.6 mg/dL (0.5-1.5); Est. Creatinine Clearance* 156.60; Estimated Glomerular Filt Rate 133 ml/min
[2025-02-20 10:22] LABS: Alkaline Phosphatase* 103 U/L (40-150); Bilirubin Total* 0.6 mg/dL (0.1-1.5); Calcium* 9.1 mg/dL (8.4-10.6); Glucose* 126 mg/dL (60-115); Total Protein* 7.1 g/dL (6.0-8.3)
--- NOTE | 2025-02-20 10:52 | PC.NURSE ---
Patient stated he was starting to feel better after the droperidol.
[2025-02-20 11:04] VITALS: BP 149/106; PULSE 59; RESP 16; TEMP 35.7; O2SAT 99
== END 2025-02-20 11:26 | disposition home or self-care (01) ==
PROVIDERS: Emergency Provider Internal Medicine
DX: R11.2 Nausea with vomiting, unspecified (principal)
CPT/HCPCS: 36415; 80053; 83690; 85025; 96374; 99283; J1790; J2405; J7030